=== PATIENT | male | born 1940 | race Caucasian/White ===

== ENCOUNTER 2023-07-21 12:35 | Emergency (ER) | payer OTHER, SELFPAY ==
[2023-07-21 12:39] VITALS: BP 162/70
--- NOTE | 2023-07-21 16:35 | ED.GENMED ---
History of Present Illness
General
Chief Complaint: Fall
Source: patient
Exam Limitations: none
Time Seen by Provider: 07/21/23 16:23
Nursing documentation reviewed up to this point in time: agreed with
Travel History
Have you had any contact with someone who has COVID-19?: No
Do you have any symptoms of coronavirus? Fever > 100 degrees, chills, cough, shortness of breath, sore throat, loss of taste or smell, muscle aches, or headache?: No
History of Present Illness
History of Present Illness:
Patient presents to ED secondary to [place] and fall [place] [employer] this morning. Patient states that he missed 1 step walking down, and fell forward hitting the door in front of him. During the process, he was able to put his arms out and braced for the
fall, and in the process twisted his back. Denies falling down. Denies headache. Denies neck pain. Denies loss of sensation or weakness. Patient is complaining of minor injury to his forehead and lower lip, along with aforementioned back pain.
Denies loss of sensation or weakness. Denies urinary or bowel incontinence. Patient states that he does have underlying arthritis in his back, and has had periodic pain in the past. Patient does not take any blood thinning medications.
Past History
Past History
ED Past Medical History: CAD, HTN and Hypercholesterolemia
ED Past Surgical History: Cardiac (cath w/ stent) and Orthopedic
Social History
Personal:
Living: with family
Employment: Employed
Review of Systems
Review of Systems
Allergies reviewed?: Yes
All Other Systems: ROS reviewed and negative except as documented in HPI and ROS
Constitutional: Reports no symptoms
EENT: Reports no symptoms
Respiratory: Reports no symptoms
Cardiac: Reports no symptoms
ABD/GI: Reports no symptoms
: Reports no symptoms; Denies incontinence
Musculoskeletal: Reports back pain
Skin: Reports other (lip laceration and forehead contusion)
Neurological: Reports no symptoms; Denies dizzy, headache or weakness
Phy Exam
Physical Exam
Physical Exam:
Physical Exam
General: mild painful distress, not acutely ill. afebrile
Head: mild swelling/erythema noted over right forehead without tenderness/bleeding
Neck: supple. normal range of motion. no midline tenderness.
Heart: s1/s2 regular rate and rhythm, no murmur. equal radial pulses.
Lungs: no acute respiratory distress. clear bilaterally
Abdomen: normal bowel sounds. not tender.
Back: no midline tenderness. negative straight leg raise test. mild diffuse lower back tenderness to palpation with spasm.
Neuro: alert and oriented. no focal neurological deficits
Skin: an approx 0.5 cm superficial laceration over left lower lip, without bleeding. teeth intact.
Psychiatric: well kept. interactive and cooperative
Extremities: no edema. no calf tenderness.
Course
Orders/Labs/Results
Orders:
Orders
07/21/23 16:33
Acetaminophen [Tylenol] 650 mg PO NOW STA
Dexamethasone Pf [Decadron] 10 mg PO NOW STA
Vital Signs
Initial and Last Documented VS:
Initial Vital Signs
Temp Pulse Resp BP Pulse Ox
98.1 F 69 18 162/70 100
07/21/23 12:39 07/21/23 12:39 07/21/23 12:39 07/21/23 12:39 07/21/23 12:39
Last Documented Vital Signs
Temp Pulse Resp BP Pulse Ox
98.1 F 79 20 139/75 98
07/21/23 12:39 07/21/23 16:52 07/21/23 16:52 07/21/23 16:52 07/21/23 16:52
MDM/Problems Addressed
MDM/Problems Addressed:
CT head and lip laceration repair offered but declined by patient, which is reasonable, given low mechanism of injury and minor laceration without sig. separation.
Back pain, likely strain with associated spasm. No findings concerning for cauda equina syndrome. Pt is otherwise afebrile, hemodynamically stable, and neurologically intact at time of discharge, to the care of his spouse. Advised PCP follow up with
any futher concerns.
*Critical Care Note
Total Time (30-74mins, 75-104mins- exclusive of procedures): Not Applicable
ED Attending Note
-
Portions of this chart may have been created with voice recognition software.� Occasional wrong word or��sound alike� substitutions may have occurred due to the inherent limitations of voice recognition software.
Discharge Plan
Departure
Patient Disposition: Home (Routine Discharge)
Date of Disposition: 07/21/23
Time of Disposition: 16:38
Patient with high blood pressure during this ER visit?: Yes
Condition: Good
Discharge Problem:
Back spasm, Laceration of lip, Contusion, Head injury
Instructions: Head Injury in Adults (DC), Contusion (DC), Low Back Pain ED, Laceration
Activity Restrictions/Additional Instructions:
As discussed, please follow up with your primary care physician for re-evaluation.
Interventions
Interventions:
*Risk Screen - Suicide Last Done: 07/21/23 16:00
*General Assessment Last Done: 07/21/23 16:00
*Neglect/Abuse Screening Last Done: 07/21/23 16:00
*ED COVID-19 Vaccine History Last Done: 07/21/23 16:00
*Nursing Disposition Last Done: 07/21/23 17:03
ED-Musculoskeletal Assessment Last Done: 07/21/23 16:50
ED- Neurological Assessment Last Done: 07/21/23 16:50
ED-Skin Assessment Last Done: 07/21/23 16:50
Discharge Date and Time
Discharge Date/Time: 07/21/23 17:04
[2023-07-21] MEDS: TYLENOL 650 MG PO (16:43)
[2023-07-21] MEDS: DECADRON 10 MG PO (16:43)
[2023-07-21 16:52] VITALS: BP 139/75
== END 2023-07-21 17:04 | disposition home or self-care (01) ==
LOC: EMR 12:35
PROVIDERS: EMERGENCY PHYSICIAN Emergency Medicine; FAMILY PHYSICIAN Family Medicine
DX: M62.830 Muscle spasm of back (principal); S01.511A Laceration without foreign body of lip, initial encounter; S20.229A Contusion of unspecified back wall of thorax, initial encounter; W01.0XXA Fall on same level from slipping, tripping and stumbling without subsequent striking against object, initial encounter; S09.90XA Unspecified injury of head, initial encounter; I25.10 Atherosclerotic heart disease of native coronary artery without angina pectoris; I10 Essential (primary) hypertension; E78.00 Pure hypercholesterolemia, unspecified; Z95.5 Presence of coronary angioplasty implant and graft
CPT/HCPCS: 99283